=== PATIENT | male | born 1965 | race Caucasian/White ===

== ENCOUNTER 2024-12-03 06:51 | Emergency (ER) | payer OTHER, SELFPAY ==
[2024-12-03 06:54] VITALS: BP 110/70; PULSE 74; RESP 20; TEMP 36.4; O2SAT 99; BMI 34.3
[2024-12-03 06:59] VITALS: BP 110/70; PULSE 74; RESP 19; TEMP 36.4; O2SAT 98
--- NOTE | 2024-12-03 07:06 | EDS_ITS ---
HPI History of Present Illness Chief Complaint: General Illness PFSH PFS Home Medications ?Medication ?Instructions ?Recorded ?Last Taken ?Type ondansetron 4 mg disintegrating 4 mg PO Q8H PRN PRN Na usea #10 tabs 12/03/24 Unknown Rx tablet Allergy/AdvReac Type Severity Reaction Status Date / Time heparin Allergy Mild Swelling Verified 12/03/24 06:54 Penicillins Allergy Mild Rash Verified 12/03/24 06:54 Family History no significant family his Social History Smoking Status: Never smoker EXAM Physical Exam Const Vital Signs: 12/03/24 06:54 12/03/24 06:54 12/03/24 06:59 Temperature 97.5 F L 97.5 F L Temperature Source Oral Oral Pulse Rate 74 74 Respiratory Rate 20 H 19 H Respiratory Effort Normal Respiratory Pattern Normal Blood Pressure 110/70 110/70 Blood Pressure Mean 83 83 Pulse Ox 99 98 Oxygen Delivery Method Room Air Room Air 12/03/24 08:53 12/03/24 09:28 12/03/24 10:43 Temperature 98.3 F Temperature Source Pulse Rate 82 78 79 Respiratory Rate 22 H 24 H 20 H Respiratory Effort Respiratory Pattern Blood Pressure 154/82 H 154/82 H 158/85 H Blood Pressure Mean 106 106 109 Pulse Ox 99 97 98 Oxygen Delivery Method Room Air MDM MDM MDM Narrative Medical decision making narrative: HISTORY OF PRESENT ILLNESS: Chief complaint: Dizziness, near syncope 59-year-old male without a past medical history presents with concern for dizziness and near syncope. States on toilet bowel movement he came dizzy, lightheaded felt he is going to pass out had episode of vomiting. Also associated vomiting and diarrhea. No recent travel. No sick contacts. No recent antibiotics. Denies hematemesis or melena. Denies chest pain or shortness of breath. Denies headache or abdominal pain. REVIEW OF SYSTEMS: Pertinent positives: Dizziness/near syncope, nausea vomiting and diarrhea. Pertinent negatives: As per HPI PHYSICAL EXAM: Nursing triage notes reviewed, Vital signs reviewed Constitutional: please see mdm HENT: MMM Eyes: Pupils equal round and reactive to light, Extraocular muscles intact Neck: No stridor, no JVD, full neck ROM Lungs: Clear to auscultation, No wheezing or rales. No increased work of breathing, no conversational dyspnea, no accessory muscle use, no nasal flaring. No respiratory distress noted Heart: Regular rate and rhythm, No murmurs, No rubs and No gallops, 2+ distal pulses (radial, femoral, posterior tibial) in all extremities Abdomen: Soft, there is no tenderness, rigidity, rebound or guarding, no obvious peritoneal signs, no palpable pulsatile abdominal masses, no auscultated abdominal bruit : No CVAT Extremities: No edema Neuro: Alert and oriented x3, neuro exam at baseline, cranial nerves II through XII are intact. No pain with extraocular muscle movement. There is negative test of skew. 5 of 5 strength in upper and lower extremities in flexion extension. Intact sensation to light touch in upper and lower extremity dermatomes. No truncal or extremity ataxia. No dysdiadochokinesia. Normal gait. 2+ reflexes in upper and lower extremities. No meningeal signs. Negative Babinski. NIH of 0. Skin: No rash or lesions noted MEDICAL DECISION MAKING: Chief Complaint: please see HPI External records reviewed: Reviewed prior imaging, reviewed allergies, reviewed vital signs and reviewed current medications Factors affecting care: none reported Social determinants of health: denies drug use History obtained from others: none Consults: none [facility] Narrative: The patient was initially hemodynamically stable, afebrile and nontoxic- appearing. Exam without focal neurologic deficits. Patient moist with membranes. He had a nonfocal cardiopulmonary exam. A soft benign abdomen. I considered the following differential diagnosis: Dehydration, viral versus bacterial gastroenteritis, pancreatitis, small bowel obstruction. I obtained a broad lab workup to further determine if the patient was suffering from a life-threatening etiology. Initially started patient IV fluids, Zofran and Toradol ALL IMAGES (IF OBTAINED) HAVE BEEN PERSONALLY REVIEWED AND INTERPRETED BY MYSELF. EKG with normal sinus rhythm rate of 75, normal axis, normal intervals, no STEMI, no sign of WPW, ARVD or Brugada syndrome CBC leukocytosis, hemoconcentration, thrombocytopenia CMP with evidence of some mild renal insufficiency versus SYLVESTER although identical prior for comparison, no significant electrolyte abnormality, anion gap to suggest end organ hypo-perfusion, no evidence of metabolic acidosis with a norm al bicarbonate, no evidence of hepatobiliary obstructive pathology. Lipase is wnl indicating no pancreatic inflammation. Lipase is wnl indicating no pancreatic inflammation. Upon re-evaluation the patient's abdominal exam is benign. His blood pressure was noted to be elevated prior to discharge however this is asymptomatic does not require immediate ED treatment but does need PCP follow-up. The synthesis of the patient's history, physical exam, labs, images suggest dehydration. The patient is tolerating PO. He is agreeable to be discharged with PO zofran and instructions to return if symptoms change or worsen. The patient and/or family, caregivers express understanding. The patient and/or family, caregivers agrees with the plan. Shared decision making: I will have a discussion with the patient and or visitors regarding risk/benefits of further testing or admission. They will be made aware of of the risk/benefits inherent in this decision they will be given the opportunity to voice understanding. Total critical care time today provided was at least 0 minutes. This excludes separately billable procedures. Critical care time (if documented) is secondary to the patient having high probability of clinically significant/life threatening deterioration in the patient's condition which required my urgent intervention. Impression: 1. Nausea vomiting diarrhea 2. Dehydration 3. Thrombocytopenia Dispo: dc This note was generated with [employer] dictation software. It may contain incorrect words, spelling, and punctuation that were not noted in review of the chart prio r to signing. Lab Data Labs: Laboratory Results - last 24 hr 12/03/24 07:00 WBC 11.4 H RBC 5.67 Hgb 17.4 H Hct 49.9 MCV 88.0 MCH 30.7 MCHC 34.9 RDW Std Deviation 42.6 RDW Coeff of Vincent 13.2 Plt Count 136 L MPV 13.7 H Immature Gran % (Auto) 0.400 Neut % (Auto) 86.8 H Lymph % (Auto) 6.5 L Roberts % (Auto) 4.9 Eos % (Auto) 0.9 Baso % (Auto) 0.5 Absolute Neuts (auto) 9.9 H Absolute Lymphs (auto) 0.74 L Nucleated RBC % 0 Sodium 139 Potassium 4.1 Chloride 99 Carbon Dioxide 21.8 Anion Gap 18 H BUN 19 Creatinine 1.49 H Estim Creat Clear Calc 77.79 Est GFR (MDRD) Non-Af 54 L BUN/Creatinine Ratio 12.9 Glucose 207 H Calcium 10.5 Total Bilirubin 0.87 AST 32 ALT 40 Alkaline Phosphatase 118 Troponin T High Sens < 6 Total Protein 8.5 H Albumin 5.0 Globulin 3.5 Albumin/Globulin Ratio 1.4 Lipase 29 Radiography Chest X-Ray - ED: Read by ED Physician Diagnostic Testing: Clinical Impression(s) from Imaging Studies Chest X-Ray 12/03/24 10:05 IMPRESSION: Lungs appear clear of acute disease. No evidence of pulmonary edema. No pleural effusion or pneumothorax is noted. The cardiomediastinal silhouette is within the normal range for age. Mild degenerative changes of the spine are seen. No evidence of acute cardiopulmonary disease. Reading Location: [place] [id number] Discharge Plan Triage Chief Complaint: General Illness ED Provider: Lazaro Borrego Dx/Rx/DC Orders Clinical Impression: Nausea & vomiting Instructions: ED Diet Vomiting Diarrhea Prescriptions: New ondansetron 4 mg tablet,disintegrating 4 mg PO Q8H PRN PRN (Reason: Nausea) Qty: 10 0RF Primary Care Provider: JACKY STOCK Referrals: JACKY STOCK [Other] Activity Restrictions/Additional Instructions: Thank you for trusting us with your care today! Your labs were consistent with dehydration. Please drink plenty of fluids. Please take Zofran for nausea and vomiting at home. Please return if you cannot tolerate fluids by mouth. Please take Tylenol (2 pills, 650 mg), ibuprofen (2 pills, 400 mg) every 6 hours as needed for pain and fever control. Please return to the emergency department if your symptoms change or worsen. Please follow with your primary care physician for further outpatient evaluation and management. Print Language: [place] Disposition Disposition: Home, Self Care Discharge Date/Time: 12/03/24 10:58
--- NOTE | 2024-12-03 07:09 | EKG12_ITS ---
Test Reason : GEN ILLNESS Blood Pressure : */* mmHG Vent. Rate : 75 BPM Atrial Rate : 75 BPM P-R Int : 152 ms QRS Dur : 92 ms QT Int : 402 ms P-R-T Axes : 6 -1 25 degrees QTcB Int : 448 ms Normal sinus rhythm Normal ECG Confirmed by ALEXA COLLIER, SHERIE ([id number]), medical transcription editor DEBBI TSANG ([id number]) on 12/04/2024 1:36:47 PM Referred By: Confirmed By: SHERIE LIU MD
[2024-12-03 08:53] VITALS: BP 154/82; PULSE 82; RESP 22; O2SAT 99
[2024-12-03] MEDS: Ondansetron 4 MG/2 ML Vial IV (08:54)
[2024-12-03] MEDS: Ketorolac 15 MG/ML Vial IV (08:54)
[2024-12-03] MEDS: 0.9% Normal Saline (1000mL) 1,000 ML 1000 ML IV (08:55)
[2024-12-03 08:57] LABS: Absolute Lymphocyte Count 0.74 X10^3/uL (0.83-4.51); Absolute Neutrophil Count 9.9 X10^3/uL (2.0-7.7); Basophil# 0.06 X10^3/uL; Basophil% 0.5 % (0-1); Eosinophils% 0.9 % (0-5); Hematocrit 49.9 % (40-54); Hemoglobin 17.4 g/dL (13.0-16.5); Lymphocyte # 0.74 X10^3/ul (0.83-4.51); Lymphocyte % 6.5 % (19-41); Mean Corp Hgb Conc 34.9 g/dL (32-36); Mean Corpuscular Hgb 30.7 pg (27.0-32.0); Mean Platelet Vol. 13.7 fl (6.2-12.0); Monocyte# 0.56 X10^3/uL; Monocyte% 4.9 % (0-10); NRBC Flagged by Analyzer 0 % (0-5); Neutrophil # 9.88 X10^3/uL (2.7-7.7); Neutrophil % 86.8 % (47-70); Platelet Count 136 K/mm3 (150-450); RBC Distribution Width CV 13.2 % (11.6-14.6); RBC Distribution Width SD 42.6 fl (35.1-43.9); Red Blood Count 5.67 M/mm3 (4.6-6.2); White Blood Count 11.4 K/mm3 (4.4-11.0)
[2024-12-03 09:28] VITALS: BP 154/82; PULSE 78; RESP 24; O2SAT 97
[2024-12-03 09:40] LABS: ALB/GLOB Ratio 1.4 RATIO (0.9-2.4); AST(SGOT) 32 U/L (<=37); Alanine Aminotransfer ALT/SGPT 40 U/L (<=46); Alkaline Phosphatase 118 U/L (40-129); Anion Gap 18 (5-15); BUN 19 mg/dL (4-19); BUN/Creat Ratio 12.9 RATIO (10-20); Calcium,Total 10.5 mg/dL (7.6-11.0); Carbon Dioxide 21.8 mmol/L (21.0-32.0); Chloride 99 mmol/L (98-108); Creatinine, Serum 1.49 mg/dL (0.70-1.20); EST Glomerular Filtration Rate 54 (>60); Estimated Creatinine Clearance 77.79 ml/min (50-250); Globulin 3.5 g/dL (2.2-4.2); Glucose 207 mg/dL (70-99); Lipase 29 U/L (13-75); Potassium 4.1 mmol/L (3.3-5.1); Protein, Total 8.5 g/dL (5.9-8.4); Sodium Level 139 mmol/L (133-145); Total Bilirubin 0.87 mg/dL (0.00-1.30)
[2024-12-03 09:59] LABS: Troponin T High Sensitivity < 6 ng/L (<=22)
--- NOTE | 2024-12-03 10:05 | RAD_ITS ---
PROCEDURE: CHEST 1 VIEW (PORTABLE) 12/03/2024 REASON FOR EXAM: NEAR SYNCOPE TECHNIQUE: Frontal view of the chest. COMPARISON: None provided. RAD/Chest 1 View (Portable) IMPRESSION: Lungs appear clear of acute disease. No evidence of pulmonary edema. No pleural effusion or pneumothorax is noted. The cardiomediastinal silhouette is within the normal range for age. Mild degenerative changes of the spine are seen. No evidence of acute cardiopulmonary disease. Reading Location: [place] [address]
[2024-12-03 10:43] VITALS: BP 158/85; PULSE 79; RESP 20; TEMP 36.8; O2SAT 98
== END 2024-12-03 10:58 | disposition home or self-care (01) ==
PROVIDERS: Emergency Provider Emergency Medicine; Visit Provider Emergency Medicine
DX: R11.2 Nausea with vomiting, unspecified (principal); R19.7 Diarrhea, unspecified; E86.0 Dehydration; D69.6 Thrombocytopenia, unspecified
CPT/HCPCS: 71045; 80053; 83690; 84484; 85025; 93005; 96361; 96374; 96375; 96376; 99284; A4216; J2405